=== PATIENT | female | born 1985 | race Caucasian/White ===

== ENCOUNTER 2017-06-13 08:56 | Inpatient (IN) | payer OTHER ==
[~2017-06-13] VITALS: Ht 167.6 cm; Wt 70.3 kg
[2017-06-13 09:11] VITALS: BP 137/86
[2017-06-13] MEDS ORDERED: PRENATAL TABLE1 EAC2 PO (09:12)
[2017-06-13] MEDS ORDERED: FERRALET 90 TA1 EACH PO (09:12)
[2017-06-13] MEDS ORDERED: VITAMIN D1000 UNIT PO (09:13)
[2017-06-13 09:43] LABS: ABSOLUTE BASOPHIL COUNT 0 /CUMM (0.0-0.2); ABSOLUTE EOSINOPHIL COUNT 0.3 /CUMM (0.0-0.7); ABSOLUTE GRANULOCYTE CT 8.3 /CUMM (1.4-6.5); ABSOLUTE LYMPH COUNT 2.3 /CUMM (1.2-3.4); ABSOLUTE MONOCYTE COUNT 0.9 /CUMM (0.10-0.60); BASOPHIL % 0.2 % (0.0-2.0); EOSINOPHIL % 2.3 % (0-5); GRANULOCYTE % 70.4 % (42.2-75.2); HEMATOCRIT 35.2 % (37-47); MEAN CORPUSCULAR HGB CONC 34.7 G/DL (33.0-37.0); MEAN CORPUSCULAR VOLUME 92.3 FL (81.0-99.0); MEAN PLATELET VOLUME 8.2 FL (7.4-10.4); PLATELET COUNT 254 /CUMM (130-400); RBC DISTRIBUTION WIDTH 14.1 % (11.5-14.5); RED BLOOD CELL CT 3.81 /CUMM (4.20-5.40); WHITE BLOOD CELL COUNT 11.8 /CUMM (4.8-10.8)
--- NOTE | 2017-06-13 10:28 | History & Physical ---
General Information and HPI MD Statement: I have seen and personally examined MALENA PATHAK and documented this H&P. Source of Information: patient, old records Exam Limitations: no limitations History of Present Illness: The patient is a 32 year old at 39 weeks and 6 days gestation who presented with a chief complaint of elective IOL. Pt is in service in [facility] and family is here for childcare assistance for the week. Occ ctx. No LOF / vb. +FM. AP care uncomplicated. Allergies/Medications Allergies: Coded Allergies: MDX - Levofloxacin (From LEVAQUIN) (Intermediate, HIVES 04/13/11) MDX - PCN (penicillin) (PCN (PENICILLIN)) (Intermediate, HIVES 04/13/11) Home Med list Cholecalciferol (Vitamin D3) (Vitamin D) 1,000 UNIT TABLET 1 TAB PO DAILY SUPPLEMENT (Reported) Iron Carb,Gl/FA/B12/C/Docusate (Ferralet 90 Tablet) 90 MG-1 MG-12 MCG-120 MG-50 MG TABLET 1 TAB PO DAILY ANEMIA (Reported) Vit No.130/Iron/FA ( Tablet) 27 MG IRON-800 MCG TABLET 1 TAB PO DAILY (Reported) Compliance With Home Meds: GOOD Past History auricular therapist History : 4 Para: 3 Last Menstrual Period: 09/08/16 Estimated Delivery Date: 06/14/17 Past auricular therapist History: h/o c/s x1, x 2 Past Pregnancies Past Pregnancies: 1 Date of Delivery: 09/21/08 Gestational Age: 39 Length of Labor: 26 hrs Weight: 8#9 Type of Delivery: Anesthesia: epidural Place of Delivery: [place] Complications: no Past Pregnancies: 2 Date of Delivery: 04/13/11 Gestational Age: 40 Length of Labor: 9 hrs Weight: 8#2 Type of Delivery: vaginal () Anesthesia: epidural Place of Delivery: Complications: no Past Pregnancies: 3 Date of Delivery: 05/11/15 Gestational Age: 40 Length of Labor: 9 hrs Weight: 8# Type of Delivery: vaginal () Anesthesia: epidural Place of Delivery: [facility] Complications: no Medical History [employer]/Reproductive: h/o abn pap 2006 Surgical History Pertinent Surgical History: (breast implants, T&A) Past Family/Social History Psychosocial History Smoking Status: Never Smoked Exam & Diagnostic Data Last 24 Hrs of Vital Signs/I&O Vital Signs Date Time Temp Pulse Resp B/P B/P Pulse O2 O2 Flow FiO2 Mean Ox Delivery Rate 06/13 0911 137/86 Intake & Output 06/13 1600 06/13 0800 06/13 0000 Intake Total Output Total Balance Patient 155 lb Weight Obstetric Exam Wgt Gained During : 15 # Pelvimetry: adequate Dilation (cm): 3 Effacement (%): 50 Station: -2 Membranes: AROM (clr) Fluid: clear Fundal Height (cm): 39 Multiple Gestation? No Contractions: q 5-10 Infant #1 - FHR Baseline: 130 Category: 1 Estimated Weight: 3500 Presentation: vtx Patient for Induction? Yes Hannon Score Hannon Score Response Value Cervix Position: posterior 0 Cervix Consistency: medium 1 Cervix Effacement: 30-50% 1 Cervix Dilation: 3-4 cm 2 Cervix Station: -2 1 Total 5 Physical Exam: NAD RRR CTA Abd soft nt gravid Ext nt tr ed Labs Blood Type & Rh: O pos Antibody Screen: neg Hct/Hgb & Platelets #1: 37, 294 Hct/Hgb & Platelets #2: 10.2/ 29.6, 203 Rubella: imm VDRL #1: neg VDRL #2: neg HbsAg: neg HIV #1: neg HIV #2 neg 1 Hr PG: high 3 Hr P/ 148/ 108/ 53 Group B Strep: neg Initial Ultrasound: nl NT Anatomy Ultrasound: 01/12/17 nl jose g, plac ant high Genetic Testing: wnl 1st tri screen Last 24 Hrs of Labs/Sean: Laboratory Tests 06/13/17 0929: CBC w Diff NO MAN DIFF REQ, RBC 3.81 L, MCV 92.3, MCH 32.0 H, MCHC 34.7, RDW 14.1, MPV 8.2, Gran % 70.4, Lymphocytes % 19.2 L, Monocytes % 7.9, Eosinophils % 2.3, Basophils % 0.2, Absolute Granulocytes 8.3 H, Absolute Lymphocytes 2.3, Absolute Monocytes 0.9 H, Absolute Eosinophils 0.3, Absolute Basophils 0 06/13/17 0900: Urinalysis LIGHT H, Urine Color YEL, Urine Clarity HAZY H, Urine pH 7.0, Ur Specific [place]unction 1.010, Urine Protein NEG, Urine Ketones NEG, Urine Nitrite NEG, Urine Bilirubin NEG, Urine Urobilinogen 0.2, Ur Leukocyte Esterase SMALL H, Ur Microscopic SEDIMENT EXAMINED, Urine RBC 1-3, Urine WBC 10-15 H, Ur Epithelial Cells MANY H, Urine Bacteria FEW H, Urine Hemoglobin NEG, Urine Glucose NEG Assessment/Plan Assessment/Plan: 32yo P3 @ 39+6 for IOL, h/o C/S x 1, x 2, desires TIFFANIE. Pt understands and accepts risks of IOL w/ h/o C/S, possibly increased risk of uterine rupture with addition of pitocin. Pt understands risk of TIFFANIE inc risk of uterine rupture <1% and accepts risk. Informed consent signed. -Admit -AROM, possibly pitocin -monitoring -anesthesia -Ant As Ranked By This Provider Problem List: 1. DESIRES 2. Previous section 3. Core Measures Venous Thromboembolism VTE Risk Factors / No Mechanical VTE Prophylaxis d/t LowRisk-No Interven Req'd No VTE Pharm Prophylaxis d/t LowRisk-No Interven Req'd Attending MD Review Statement Attending Statement Attending MD Statement: examined this patient, discussed with family, discussed w/nursing
--- NOTE | 2017-06-13 13:35 | PN- OBGYN ---
Surgical Brief Attending Note Brief Attending Note: PT C/O INCREASING CTX, DESIRES NITROUS OXIDE AFEB, V/SS FHT 130S MOD VARIABILITY +ACC NO DEC TOCO Q 5 SVE 3-4 / 80 / -2 P3 39+6 EARLY LABOR, DESIRES TIFFANIE, S/P AROM, GBS NEG, AND MATERNAL STATUS REASSURING -CONT EXPECTANT MGMT -ANT
--- NOTE | 2017-06-13 16:13 | PN- OBGYN ---
Surgical Brief Attending Note Brief Attending Note: pt comfortable w/ epidural afeb, vss fht 120s moderate variability +acc occ early dec toco q 2-3 sve /-1 -cont expectant mgmt
--- NOTE | 2017-06-13 18:31 | Labor & Delivery Summary ---
Delivery Summary Vaginal Delivery: Vaginal: Episiotomy/Lacerations: Episiotomy/Lacerations: none Placenta: Placenta: normal, 3 vessel Anesthesia: block, nitrous Apgars - 1 Min: 9 Apgars - 5 Min: 9 Additional Comments: Pt FD / +3 and pushing w/ epidural. Controlled of live female, apg 10/21. Head del over perineum from ERIC. Mouth and nose bulb suctioned. Body delivered w /o difficulty to mom's chest. Upon cessation of cord pulse, clamped and cut. 3vc placenta del spont intact. No lacerations noted. Fundus contracted well. EBL 200cc. Pt tolerated well. Baby with mom.
[2017-06-14 08:11] LABS: ABSOLUTE BASOPHIL COUNT 0 /CUMM (0.0-0.2); ABSOLUTE EOSINOPHIL COUNT 0.2 /CUMM (0.0-0.7); ABSOLUTE GRANULOCYTE CT 10.5 /CUMM (1.4-6.5); ABSOLUTE LYMPH COUNT 2.2 /CUMM (1.2-3.4); BASOPHIL % 0.1 % (0.0-2.0); EOSINOPHIL % 1.7 % (0-5); GRANULOCYTE % 75.4 % (42.2-75.2); HEMATOCRIT 36.1 % (37-47); MEAN CORPUSCULAR HGB 31.6 PG (27.0-31.0); MEAN CORPUSCULAR HGB CONC 33.3 G/DL (33.0-37.0); MEAN CORPUSCULAR VOLUME 94.9 FL (81.0-99.0); MEAN PLATELET VOLUME 8.4 FL (7.4-10.4); PLATELET COUNT 245 /CUMM (130-400); RBC DISTRIBUTION WIDTH 14.6 % (11.5-14.5); RED BLOOD CELL CT 3.81 /CUMM (4.20-5.40)
--- NOTE | 2017-06-14 09:27 | PN- Post Delivery/GYN ---
Subjective Subjective: feeling well Review of Systems Constitutional: Reports: no symptoms. Denies: chills, fever. EENTM: Denies: blurred vision, double vision, visual changes. Neurological/Psychological: Denies: anxiety, depressed. Objective Last 24 Hrs of Vital Signs/I&O vss Physical Exam General Appearance Alert, Oriented X3, Cooperative, No Acute Distress Cardiovascular Regular Rate Abdomen Soft, fundus firm Pelvic (FEMALE) lochia serosanganous Current Medications: Current Medications Sig/Allyson Start time Last Medication Dose Route Stop Time Status Admin Acetaminophen 650 MG Q4P PRN 06/13 1830 AC PO Chloroprocaine HCl 30 ML .STK-MED ONE 06/13 1355 DC IV 06/13 1356 Docusate Sodium 100 MG BID PRN 06/13 1830 AC PO Ibuprofen 800 MG Q6P PRN 06/13 1830 AC 06/14 PO 0621 Lactated Ringer's 1,000 ML Q8H 06/13 0900 AC 06/13 IV 1316 Magnesium Hydroxide 30 ML DAILY PRN 06/13 1830 AC PO Oxytocin 20 UNITS Q5H 06/13 1830 DC / Lactated Ringer's 1,000 ML IV 06/13 2329 1815 Oxytocin 500 UNITS .STK-MED ONE 06/13 0945 DC IV 06/13 0946 Last 24 Hrs of Labs/Sean: Laboratory Tests 06/14/17 0730: CBC w Diff NO MAN DIFF REQ, RBC 3.81 L, MCV 94.9, MCH 31.6 H, MCHC 33.3, RDW 14.6 H, MPV 8.4, Gran % 75.4 H, Lymphocytes % 15.7 L, Monocytes % 7.1, Eosinophils % 1.7, Basophils % 0.1, Absolute Granulocytes 10.5 H, Absolute Lymphocytes 2.2, Absolute Monocytes 1.0 H, Absolute Eosinophils 0.2, Absolute Basophils 0 06/13/17 0929: CBC w Diff NO MAN DIFF REQ, RBC 3.81 L, MCV 92.3, MCH 32.0 H, MCHC 34.7, RDW 14.1, MPV 8.2, Gran % 70.4, Lymphocytes % 19.2 L, Monocytes % 7.9, Eosinophils % 2.3, Basophils % 0.2, Absolute Granulocytes 8.3 H, Absolute Lymphocytes 2.3, Absolute Monocytes 0.9 H, Absolute Eosinophils 0.3, Absolute Basophils 0 Microbiology 06/13 1705 URINE ROUT: Urine Culture - RES Assessment/Plan Assessment/Plan PPD #1 vss afebrile plan d/c home tomorrow Problem List: 1. DESIRES 2. NORMAL 3. Previous section 4. Attending MD Review Statement Attending Statement Attending MD Statement: examined this patient, discussed with nursing
[2017-06-15] MEDS ORDERED: IBUPROFEN800 M1 PO (08:15)
--- NOTE | 2017-06-15 08:15 | PN- OBGYN ---
Surgical Brief Attending Note Brief Attending Note: PPD#2 pt is resting in bed, no complaints. tolerate diet, void without difficulties. ambulating well PE: VSS CV RRR Lungs CTA B/L Abdomen: soft, nontender, uterus firm, fundus below umbilicus. lochia mild Ext: DCT (-) A/P: 32 yo, s/p , PPD#2 1. encourage ambualtion and 2. will d/c home today, discharge instruction given. f/u in office in 2wks and 6 wks
== END 2017-06-15 12:23 | DRG 775 ==
LOC: GNO 08:56
PROVIDERS: Obstetrics & Gynecology
PROC: 10907ZC Drainage of Amniotic Fluid, Therapeutic from Products of Conception, Via Natural or Artificial Opening (ICD-10-PCS; principal; 2017-06-13)
PROC: 10E0XZZ Delivery of Products of Conception, External Approach (ICD-10-PCS; principal; 2017-06-13)
DX: O34.219 Maternal care for unspecified type scar from previous cesarean delivery (principal); N85.8 Other specified noninflammatory disorders of uterus; Z3A.39 39 weeks gestation of pregnancy; Z37.0 Single live birth
CPT/HCPCS: GNOP; 36415; 81001; 87086; J7120